=== PATIENT | female | born 1985 | race Caucasian/White ===

== ENCOUNTER → 2023-05-26 | Outpatient (CLI) | payer OTHER ==
[2023-05-27 02:06] LABS: RUBEOLA (MEASLES) IGG <13.5 AU/mL (Immune >16.4)
[2023-05-28 04:06] LABS: QUANTIFERON, TB GOLD PLUS Negative (Negative)
== END | disposition home or self-care (01) ==
LOC: LABMN 09:44
PROVIDERS: ATTEND Family Medicine
DX: Z11.3 Encounter for screening for infections with a predominantly sexual mode of transmission (principal); Z02.89 Encounter for other administrative examinations; Z20.1 Contact with and (suspected) exposure to tuberculosis; Z20.828 Contact with and (suspected) exposure to other viral communicable diseases
CPT/HCPCS: 86480; 86592; 86706; 86735; 86762; 86765; 86787; 87340; 87491; 87591